=== PATIENT | female | born 1985 | race Caucasian/White ===

== ENCOUNTER 2022-01-22 11:04 | Emergency (ER) | payer BC, OTHER ==
[~2022-01-22] VITALS: Ht 160 cm; Wt 53.5 kg
--- NOTE | 2022-01-22 11:30 | NUR ---
PT CAME IN C/O LOWER BACK PAIN,PT C/O PAIN 08/31. PT IS A/O X4 PT IS CONNECTED TO MONITOR.
[2022-01-22] MEDS ORDERED: HYDROCODONE/APAP 5/325MG TABLET ONE (12:20)
[2022-01-22] MEDS ORDERED: HYDROCODONE/APAP 5/325MG TABLET PO ONE (12:30)
[2022-01-22] MEDS ORDERED: IBUPROFEN 400 MG TABLET PO ONE (14:30)
[2022-01-22] MEDS ORDERED: IBUP-1957 PO (14:55)
[2022-01-22] MEDS ORDERED: HYDR-4303 PO (14:55)
[2022-01-22] MEDS ORDERED: CYCL5TAB PO (14:55)
[2022-01-22] MEDS ORDERED: IBUPROFEN 400 MG TABLET ONE (15:14)
[2022-01-22 15:22] VITALS: BP 116/72
--- NOTE | 2022-01-22 15:22 | NUR ---
Patient discharged to home in stable condition. RX,Written and verbal after care instructions given. Patient verbalizes understanding of instruction.
== END 2022-01-22 15:24 | disposition home or self-care (01) ==
LOC: ER 12:11
DX: M54.50 Low back pain, unspecified (principal); Z79.899 Other long term (current) drug therapy
CPT/HCPCS: 72131-TC; 84703-TC